=== PATIENT | male | born 1990 | race Asian ===

== ENCOUNTER → 2017-05-31 | Outpatient (CLI) | payer OTHER | LOC: COL.RAD 10:19 | DX: M51.27 Other intervertebral disc displacement, lumbosacral region (principal); M47.816 Spondylosis without myelopathy or radiculopathy, lumbar region; G54.4 Lumbosacral root disorders, not elsewhere classified ==

== ENCOUNTER → 2017-06-15 | Outpatient (CLI) | payer OTHER ==
[~2017-06-15] VITALS: Ht 180.3 cm; Wt 81.7 kg
[~2017-06-15] MED LIST: ALEVE 220MG220 MG PO
[2017-06-15 12:24] VITALS: BP 129/65; PULSE 65
[2017-06-15 13:35] VITALS: BP 125/64; PULSE 64
== END ==
LOC: COL.RAD 11:59
DX: M51.17 Intervertebral disc disorders with radiculopathy, lumbosacral region (principal)
CPT/HCPCS: J3301